=== PATIENT | female | born 1995 | race American Indian/Alaskan Native ===

== ENCOUNTER 2019-07-20 14:12 | Outpatient (CLI) | payer MEDICAID ==
[2019-07-20 14:56] VITALS: BP 121/76
[2019-07-20] MEDS ORDERED: LACTATED RINGERS 500 ML IV ONE (15:17)
[2019-07-20 16:06] LABS: Bacteria,Urine 2+ /HPF (Negative); Bilirubin,Urine NEG (Negative); Blood,Urine NEG (Negative); Color,Urine Yellow (Yellow); Protein,Urine <15 mg/dL mg/dL (Negative); Urobilinogen,Urine < 2.0 mg/dL (<2.0)
[2019-07-20] MEDS ORDERED: ROCEPHIN/NS 2 GM/100 ML 2 GM/100 ML BAG IV ONE (17:15)
== END 2019-07-20 19:15 | disposition home or self-care (01) ==
LOC: TRG 14:12
PROVIDERS: ATTEND Obstetrics & Gynecology
DX: O26.893 Other specified pregnancy related conditions, third trimester (principal); R51 Headache; M54.9 Dorsalgia, unspecified; R25.2 Cramp and spasm; O47.03 False labor before 37 completed weeks of gestation, third trimester; Z3A.34 34 weeks gestation of pregnancy
CPT/HCPCS: 59025; 81001; 87086; 96360; J0696; J7120

== ENCOUNTER 2019-08-08 21:00 | Inpatient (IN) | payer MEDICAID ==
[2019-08-08] MEDS ORDERED: LACTATED RINGERS 500 ML IV ONE (21:40)
[2019-08-08 22:25] LABS: Bilirubin,Urine NEG (Negative); Blood,Urine NEG (Negative); Color,Urine Yellow (Yellow); Mucus,Urine 1+ /HPF; Protein,Urine <15 mg/dL mg/dL (Negative); Urobilinogen,Urine < 2.0 mg/dL (<2.0)
[2019-08-08] MEDS ORDERED: BUTORPHANOL 2 MG/1 ML INJ IV PRN (23:00)
[2019-08-09 00:35] LABS: Hematocrit 37.1 % (30.3-42.9); Hemoglobin 12.7 gm/dl (10.1-14.3); Mean Platelet Volume 8.2 fl (6-12); Red Blood Count 4.42 M/mm3 (3.65-5.03); Red Cell Distribution Width 13.6 % (13.2-15.2)
[2019-08-09] MEDS ORDERED: LACTATED RINGERS 1,000 ML ONE (06:56)
--- NOTE | 2019-08-09 10:22 | History and Physical Report ---
History of Present Illness Date of examination: 08/09/19 Date of admission: 08/08/19 23:21 Chief complaint: Labor History of present illness: Pt is a 23yo BF EDC 08/30/19; EGA 37 0/7 weeks presents to L&D complaining of irregular contractions. She received care at [facility] since 10 weeks and course has been unremarkable except for Morbid Obesity. records are available and GBS is Negative. Past History Past Medical History: no pertinent history Past Surgical History: no surgical history [employer] History: herpes Family/Genetic History: none Social history: no significant social history, single - Obstetrical History Expected Date of Delivery: 08/30/19 Actual Gestation: 37 Week(s) 0 Day(s) : 2 Medications and Allergies Allergies Allergy/AdvReac Type Severity Reaction Status Date / Time No Known Allergies Allergy Verified 05/17/15 20:33 Home Medications Medication Instructions Recorded Confirmed Last Taken Type Pnv,Calcium 72/Iron/Folic Acid 1 tab PO DAILY 03/27/15 05/23/15 05/10/15 History [Pnv Plus Multivit Tab] valACYclovir [Valtrex] 1 tab PO DAILY 05/24/15 05/24/15 05/22/15 09:00 History 1 tab cephALEXin [Keflex] 500 mg PO Q12HR #10 cap 05/26/15 Unknown Rx Active Meds: Active Medications Butorphanol Tartrate (Stadol) 2 mg IV Q2H PRN PRN Reason: Pain , Severe (7-10) Last Admin: 08/09/19 01:21 Dose: 2 mg Documented by: Review of Systems All systems: negative - Vital Signs Vital signs: Vital Signs Pulse BP 105 H 122/83 08/08/19 21:15 08/08/19 21:15 Temp Pulse Resp BP Pulse Ox 98.3 F 92 H 16 113/62 94 08/08/19 23:29 08/09/19 09:21 08/08/19 23:29 08/09/19 09:21 08/09/19 08:27 - Physical Exam Breasts: Positive: deferred Lungs: Positive: Clear to auscultation Abdomen: Positive: normal appearance Genitourinary (Female): Positive: normal external genitalia Vagina: Positive: normal moisture Uterus: Positive: enlarged Extremities: Positive: normal - Obstetrical FHR: category 1 Uterine Contraction Monitor Mode: External Cervical Dilatation: 4.5 Cervical Effacement Percentage: 70 station: -3 Uterine Contraction Pattern: Irregular Uterine Tone Measurement Phase: Contraction Uterine Contraction Intensity: Mild Results Result Diagrams: 08/09/19 Unknown All other labs normal. Assessment and Plan - Patient Problems (1) 37 weeks gestation of Onset Date: 08/09/19 Current Visit: Yes Status: Acute Plan to address problem: A: IUP @ 37 0/7 weeks in early labor Morbid obesity P: Admit to L&D for pitocin augmentation of labor (2) Morbid obesity with BMI of 45.0-49.9, adult Onset Date: 08/09/19 Current Visit: Yes Status: Chronic
[2019-08-09] MEDS ORDERED: ePHEDrine SULFATE 50 MG/1 ML INJ IV PRN (10:25)
[2019-08-09] MEDS ORDERED: TERBUTALINE 1 MG/1 ML INJ SUB-Q PRN (10:25)
[2019-08-09] MEDS ORDERED: LIDOCAINE (2%) 20 MG/1 ML VIAL 20 ML MDV INFILTRATI ONE (10:25)
[2019-08-09] MEDS ORDERED: fentaNYL 100 MCG/2 ML INJ IV PRN (10:25)
[2019-08-09] MEDS ORDERED: MINERAL OIL 30 ML ORAL LIQD PO PRN (10:25)
[2019-08-09] MEDS ORDERED: ONDANSETRON 4 MG/2 ML INJ IV PRN ×2 (10:25→19:16)
[2019-08-09] MEDS ORDERED: TERBUTALINE 1 MG/1 ML INJ IVP PRN (10:25)
[2019-08-09] MEDS ORDERED: OXYTOCIN 20 UNIT/1000ML DRIP 20 UNITS/1,000 ML BAG IV SCH ×2 (11:00→20:00)
[2019-08-09] MEDS ORDERED: OXYTOCIN DRIP 30 UNITS/500 ML BAG IV SCH ×2 (11:00)
[2019-08-09] MEDS ORDERED: LACTATED RINGERS 1,000 ML IV SCH (11:00)
--- NOTE | 2019-08-09 19:12 | Procedure Note ---
OB Delivery Note - Delivery Date of Delivery: 08/09/19 Surgeon: HINA MEZA Estimated blood loss: 100cc - Vaginal Delivery presentation: vertex Delivery position: OA Intrapartum events: PROM->1hr before delivery Delivery induction: none Delivery augmentation: rupture of membranes, pitocin Delivery monitor: external FHT, external uterine Route of delivery: Delivery placenta: spontaneous Delivery cord: 3 umbilical vessels Episiotomy: none Delivery laceration: none Anesthesia: intravenous Delivery comments: Infant delivered OA and placed on Mom's chest for [id number] bonding and delayed cord clamping, cut by Dad - Infant A at 1 minute: 8 at 5 minutes: 9 Gender: Male (2635gms)
[2019-08-09] MEDS ORDERED: ACETAMINOPHEN 325 MG TAB PO PRN (19:16)
[2019-08-09] MEDS ORDERED: HYDROcodone/ACETAMINOPHEN 5-325 MG TAB PO PRN (19:16)
[2019-08-09] MEDS ORDERED: LANOLIN/ZINC/DIMETHICONE (LANSINOH) 7 GM TP PRN (19:16)
[2019-08-09] MEDS ORDERED: MAGNESIUM HYDROXIDE (MOM) ORAL LIQD UDC PO PRN (19:16)
[2019-08-09] MEDS ORDERED: BISACODYL 10 MG RECT SUPP PR PRN (19:16)
[2019-08-09] MEDS ORDERED: WITCH HAZEL/ GLYCERIN PAD TP PRN (19:16)
[2019-08-09] MEDS ORDERED: diphenhydrAMINE 25 MG CAP PO PRN (19:16)
[2019-08-09] MEDS ORDERED: PROMETHAZINE 25 MG RECT SUPP PR PRN (19:16)
[2019-08-09] MEDS ORDERED: PROMETHAZINE 25 MG TAB PO PRN (19:16)
[2019-08-09] MEDS: FERROUS SULFATE 325 MG TAB PO SCH (22:57)
[2019-08-09] MEDS: DOCUSATE SODIUM 100 MG CAP PO SCH (22:58)
[2019-08-09] MEDS: IBUPROFEN 600 MG TAB PO SCH (23:58)
[2019-08-10] MEDS: IBUPROFEN 600 MG TAB PO SCH ×4 (05:51→23:54)
[2019-08-10] MEDS ORDERED: MEASLES, MUMPS & RUBELLA 12,500 UNIT/0.5 ML VACCINE SUB-Q ONE (06:00)
[2019-08-10] MEDS ORDERED: TETANUS,DIPH,PERTUSS(ACELL) VACCINE 0.5 ML SYRINGE IM ONE (06:00)
[2019-08-10 08:06] LABS: Hematocrit 34.4 % (30.3-42.9); Hemoglobin 11.7 gm/dl (10.1-14.3)
--- NOTE | 2019-08-10 10:02 | Progress Note ---
Assessment and Plan - Patient Problems (1) 37 weeks gestation of Onset Date: 08/09/19 Current Visit: Yes Status: Resolved (2) Morbid obesity with BMI of 45.0-49.9, adult Onset Date: 08/09/19 Current Visit: Yes Status: Resolved (3) (normal spontaneous vaginal delivery) Onset Date: 08/10/19 Current Visit: Yes Status: Resolved Plan to address problem: A: S/P - PPD #1 Doing well Asymptomatic anemia - stable P: May go home tomorrow. Subjective - Subjective Date of service: 08/10/19 Principal diagnosis: s/p - PPD #1 Interval history: Pt is feeling well without complaints. Bleeding improved. Patient reports: appetite normal, voiding normally, pain well controlled, flatus, ambulating normally, no dizzy ambulation, no nauseated : doing well, nursing well, bottle feeding Objective - Vital Signs Latest vital signs: Vital Signs Temp Pulse Resp BP BP Pulse Ox 08/10/19 06:02 98.2 F 94 H 18 118/79 98 08/10/19 05:51 18 08/10/19 00:21 98.4 F 87 16 121/76 97 08/09/19 23:58 20 08/09/19 20:50 98.1 F 87 20 109/68 100 08/09/19 19:54 87 134/92 08/09/19 19:39 100 H 154/100 08/09/19 19:24 94 H 126/93 08/09/19 19:09 94 H 132/82 08/09/19 17:00 98.3 F 08/09/19 16:42 103 H 96 08/09/19 16:41 111 H 94 08/09/19 16:37 72 92 08/09/19 16:33 111 H 94 08/09/19 16:32 112 H 94 08/09/19 16:27 111 H 95 08/09/19 16:24 102 H 94 08/09/19 16:22 100 H 97 08/09/19 16:14 107 H 96 08/09/19 16:09 100 H 97 08/09/19 16:04 97 H 97 08/09/19 15:59 88 96 08/09/19 15:54 94 H 96 08/09/19 15:49 108 H 96 08/09/19 15:44 107 H 97 08/09/19 15:39 106 H 96 08/09/19 15:34 97 H 96 08/09/19 15:29 98 H 96 08/09/19 15:24 98 H 98 08/09/19 15:19 92 H 97 08/09/19 15:14 93 H 97 08/09/19 15:09 87 97 08/09/19 15:00 99 H 99 08/09/19 14:55 97 H 95 08/09/19 14:50 100 H 97 08/09/19 14:45 97 H 97 08/09/19 14:40 97 H 98 08/09/19 14:35 97 H 98 08/09/19 14:30 97 H 98 08/09/19 14:25 107 H 97 08/09/19 14:20 98 H 96 08/09/19 14:09 99 H 96 08/09/19 14:04 89 98 08/09/19 14:00 98.2 F 08/09/19 13:59 98 H 98 08/09/19 13:57 92 H 94 08/09/19 13:54 95 H 97 08/09/19 13:49 89 97 08/09/19 13:44 89 97 08/09/19 13:39 91 H 97 08/09/19 13:34 88 97 08/09/19 13:29 93 H 97 08/09/19 13:24 89 97 08/09/19 13:19 92 H 96 08/09/19 13:14 94 H 96 08/09/19 13:09 91 H 98 08/09/19 13:04 94 H 96 08/09/19 12:59 109 H 97 08/09/19 12:54 94 H 96 08/09/19 12:49 100 H 97 08/09/19 12:44 99 H 96 08/09/19 12:39 103 H 97 08/09/19 12:34 100 H 97 08/09/19 12:29 98 H 97 08/09/19 12:24 104 H 97 08/09/19 12:19 112 H 96 08/09/19 12:14 113 H 97 08/09/19 12:09 118 H 97 08/09/19 12:04 104 H 97 08/09/19 11:59 102 H 98 08/09/19 11:54 101 H 95 08/09/19 11:49 106 H 95 08/09/19 11:44 112 H 97 08/09/19 11:39 121 H 97 08/09/19 11:34 104 H 94 08/09/19 11:29 106 H 96 08/09/19 11:24 113 H 124/79 96 08/09/19 11:00 98.4 F Intake and Output 08/09/19 08/10/19 08/10/19 22:59 06:59 14:59 Intake Total 6.65 600 Output Total 800 Balance 6.65 -200 Intake: IV 6.65 PITOCin/NS 30 UNIT/500ML 6.65 30 units In 500 ml @ 1 MILLIUNITS/MIN 1 mls/hr IV TITR ANALIA Rx#:[id number] Intake, Free Water 600 Output: Urine 800 Void 800 Other: Total, Output Amount 300 Estimated Blood Loss 100 - Exam Breasts: Present: deferred Abdomen: Present: normal appearance, soft Uterus: Present: normal, firm, fundal height below umbilicus Extremities: Present: normal - Labs Labs: Laboratory Tests 08/08/19 08/08/19 08/09/19 21:54 23:45 00:30 WBC RBC Hgb Hct MCV MCH MCHC RDW Plt Count Urine Color Yellow Urine Turbidity Clear Urine pH 6.0 Ur Specific [place] 1.015 Urine Protein <15 mg/dl Urine Glucose (UA) Neg Urine Ketones Neg Urine Blood Neg Urine Nitrite Neg Urine Bilirubin Neg Urine Urobilinogen < 2.0 Ur Leukocyte Esterase Tr Urine WBC (Auto) 2.0 Urine RBC (Auto) 2.0 U Epithel Cells (Auto) 7.0 Urine Mucus 1+ Blood Type TNR B POSITIVE Antibody Screen TNR Negative 08/09/19 08/10/19 Unknown 07:46 WBC 9.2 RBC 4.42 Hgb 12.7 11.7 Hct 37.1 34.4 MCV 84 MCH 29 MCHC 34 RDW 13.6 Plt Count 157 Urine Color Urine Turbidity Urine pH Ur Specific [place] Urine Protein Urine Glucose (UA) Urine Ketones Urine Blood Urine Nitrite Urine Bilirubin Urine Urobilinogen Ur Leukocyte Esterase Urine WBC (Auto) Urine RBC (Auto) U Epithel Cells (Auto) Urine Mucus Blood Type Antibody Screen
[2019-08-10] MEDS: FERROUS SULFATE 325 MG TAB PO SCH ×2 (11:17→22:05)
[2019-08-10] MEDS: DOCUSATE SODIUM 100 MG CAP PO SCH ×2 (11:18→22:05)
[2019-08-10] MEDS: PRENATAL VIT27-FE FUMARATE-FOLIC ACID VIT TAB PO SCH (11:18)
--- NOTE | 2019-08-10 17:01 | Discharge Summary ---
Providers - Providers Date of Admission: 08/08/19 23:21 Date of discharge: 08/11/19 Attending physician: HINA MEZA Primary care physician: HINA MEZA Hospitalization Reason for admission: active labor, IUP at term Delivery: Episiotomy: none Laceration: none Other procedures: none complications: none Discharge diagnosis: IUP at term delivered [place] baby: male Hospital course: Unremarkable. Condition at discharge: Good Disposition: DC-01 TO HOME OR SELFCARE - Discharge Diagnoses (1) 37 weeks gestation of Status: Resolved (2) Morbid obesity with BMI of 45.0-49.9, adult Status: Resolved (3) (normal spontaneous vaginal delivery) Status: Resolved Plan - Discharge Medications Prescriptions: Ferrous Sulfate [Feosol 325 MG tab] 325 mg PO BID #60 tablet Ibuprofen [Motrin 600 MG tab] 600 mg PO Q6H #30 tablet Vit-Fe Fumar-FA [ Vitamin] 1 each PO QDAY #30 tablet - Provider Discharge Summary Activity: routine, no sex for 6 weeks, no heavy lifting 4 weeks, no strenuous exercise Diet: routine Instructions: routine Additional instructions: [] Smoking cessation referral if applicable(refer to patient education folder for contact #) [] Refer to [facility]'s [facility] Booklet Call your doctor immediately for: * Fever > 100.5 * Heavy vaginal bleeding ( >1 pad per hour) * Severe persistent headache * Shortness of breath * Reddened, hot, painful area to leg or breast * Drainage or odor from incision. * Keep incision clean and dry at all times and follow doctor's instructions regarding bathing/showering - Follow up plan Follow up: HINA MEZA MD [Primary Care Provider] - 14 Days MORGAN FRANK CNM [Advanced Practice Nurse] - 14 Days
[2019-08-11] MEDS: IBUPROFEN 600 MG TAB PO SCH ×2 (05:20→09:55)
[2019-08-11] MEDS: FERROUS SULFATE 325 MG TAB PO SCH (09:55)
[2019-08-11] MEDS: PRENATAL VIT27-FE FUMARATE-FOLIC ACID VIT TAB PO SCH (09:55)
[2019-08-11] MEDS: DOCUSATE SODIUM 100 MG CAP PO SCH (09:56)
[2019-08-11 16:44] VITALS: BP 115/75
== END 2019-08-11 13:00 | disposition home or self-care (01) | DRG 775 ==
LOC: TRG 21:00 → LD 23:21 → OBSVTOIN 23:21 → INTOOBSV 23:22 → OBSVTOIN 23:22 → OB 08-09 21:05
PROVIDERS: ADMIT Obstetrics & Gynecology; ATTEND Obstetrics & Gynecology
PROC: 10E0XZZ Delivery of Products of Conception, External Approach (ICD-10-PCS; principal; 2019-08-09)
PROC: 3E0234Z Introduction of Serum, Toxoid and Vaccine into Muscle, Percutaneous Approach (ICD-10-PCS; 2019-08-10)
DX: O99.214 Obesity complicating childbirth (principal); E66.01 Morbid (severe) obesity due to excess calories; O42.92 Full-term premature rupture of membranes, unspecified as to length of time between rupture and onset of labor; O90.81 Anemia of the puerperium; Z3A.37 37 weeks gestation of pregnancy; Z37.0 Single live birth; Z23 Encounter for immunization
CPT/HCPCS: 36415; 81001; 85014; 85018; 85027; 86850; 86900; 86901; G0378; J0595; J2590; J7120

== ENCOUNTER 2019-11-09 05:43 | Day surgery (SDC) | payer MEDICAID ==
--- NOTE | 2019-11-09 06:23 | Anesthesia Day of Surgery ---
Anesthesia Day of Surgery - Day of Surgery Patient Examined: Yes Patient H&P Reviewed: Yes Patient is NPO: Yes
--- NOTE | 2019-11-09 06:23 | Anesthesia Consultation ---
Anesthesia Consult and Med Hx Date of service: 11/09/19 - Airway Anesthetic Teeth Evaluation: Good ROM Head & Neck: Adequate Mental/Hyoid Distance: Adequate Mallampati Class: Class II Intubation Access Assessment: Probably Good - Pulmonary Exam CTA: Yes - Cardiac Exam Cardiac Exam: RRR - Pre-Operative Health Status ASA Pre-Surgery Classification: ASA3 Proposed Anesthetic Plan: General - Pulmonary Hx Asthma: Yes (prn albuterol, no steroids) - Other Systems Hx Alcohol Use: Yes Hx Obesity: Yes
[2019-11-09] MEDS ORDERED: ONDANSETRON 4 MG/2 ML INJ IV PRN (06:24)
[2019-11-09] MEDS ORDERED: HYDROcodone/ACETAMINOPHEN 5-325 MG TAB PO PRN (06:24)
[2019-11-09] MEDS ORDERED: HYDROmorphone 1 MG/1 ML INJ IV PRN (06:24)
[2019-11-09] MEDS ORDERED: BUPIVACAINE/PF (0.5%) 5 MG/1 ML 30 ML VIAL INFILTRATI ONE (06:34)
[2019-11-09] MEDS ORDERED: BACTERIOSTATIC SODIUM CHLORIDE 0.9% 30 ML VIAL INFILTRATI ONE (06:47)
[2019-11-09] MEDS ORDERED: MIDAZOLAM 2 MG/2 ML INJ IV NR (07:00)
[2019-11-09] MEDS ORDERED: LACTATED RINGERS 1,000 ML IV SCH (07:00)
[2019-11-09] MEDS ORDERED: FAMOTIDINE 20 MG TAB PO NR (07:00)
[2019-11-09] MEDS ORDERED: PROPOFOL 200 MG/20 ML VIAL IV ONE (07:26)
[2019-11-09] MEDS ORDERED: fentaNYL 100 MCG/2 ML INJ ONE (07:26)
--- NOTE | 2019-11-09 07:26 | Short Stay Summary ---
Short Stay Documentation Date of service: 11/09/19 Narrative H&P: Pt is a 24yo BF LMP 10/30/19 s/p 08/09/19 presents for permanent sterilization - History Principal diagnosis: Desires permanent sterilization H&P: obtained from office Past Medical History: No medical history Past Surgical History: No surgical history Social history: no significant social history, single - Allergies and Medications Current Medications: Allergies No Known Allergies Allergy (Verified 11/05/19 12:08) Home Medications Medication Instructions Recorded Confirmed Last Taken Type No Known Home Medications [No 11/05/19 11/05/19 Unknown History Reported Home Medications] Active Medications Acetaminophen/Hydrocodone Bitart (Ducor 5/325) 2 each PO ONCE PRN PRN Reason: Pain, Moderate (4-6) Famotidine (Pepcid) 20 mg PO PREOP NR Stop: 11/09/19 23:45 Hydromorphone HCl (Dilaudid) 0.5 mg IV Q10MIN PRN PRN Reason: Pain , Severe (7-10) Stop: 11/09/19 14:56 Lactated Ringer's (Lactated Ringers) 1,000 mls @ 100 mls/hr IV DIRECT ANALIA Midazolam HCl (Versed) 2 mg IV PREOP NR Stop: 11/09/19 23:59 Ondansetron HCl (Zofran) 4 mg IV ONCE PRN PRN Reason: Nausea And Vomiting - Physical exam General appearance: no acute distress Integumentary: no rash HEENT: Atraumatic Lungs: Clear to auscultation Breasts: deferred Heart: Regular rate Gastrointestinal: normal Female Genitourinary: deferred Rectal Exam: deferred Extremities: no ischemia, No edema Neurological: Normal gait, Normal speech - Brief post op/procedure progress note Date of procedure: 11/09/19 Pre-op diagnosis: Desires permanent sterilization Post-op diagnosis: same Procedure: Laparoscopic Tubal Ligation Anesthesia: GETA Findings: A normal uterus with normal tubes and ovaries bilaterally. Surgeon: HINA MEZA Estimated blood loss: minimal Pathology: none Condition: stable - Hospital course Hospital course: Unremarkable. - Disposition Condition at discharge: Good Disposition: DC-01 TO HOME OR SELFCARE - Discharge Diagnoses (1) Encounter for sterilization Status: Resolved Short Stay Discharge Plan Activity: no restrictions Diet: regular Wound: open to air, keep clean and dry Follow up with: PRIMARY CARE, [Primary Care Provider] - 7 Days HINA MEZA MD [Staff Physician] - 14 Days Prescriptions: HYDROcodone/APAP 5-325 [Ducor 5/325] 1 each PO Q6HR PRN #20 tablet PRN Reason: Pain
[2019-11-09] MEDS ORDERED: LIDOCAINE MPF (2%) 20 MG/1 ML VIAL 5 ML ONE (07:27)
[2019-11-09] MEDS ORDERED: ROCURONIUM 50 MG/5 ML INJ IV ONE (07:27)
[2019-11-09] MEDS ORDERED: BUPIVACAINE/PF (0.5%) 5 MG/1 ML 10 ML VIAL INFILTRATI ONE ×2 (07:28→08:05)
[2019-11-09 07:40] LABS: Hematocrit 39.4 % (30.3-42.9); Hemoglobin 13.2 gm/dl (10.1-14.3)
[2019-11-09] MEDS ORDERED: ONDANSETRON 4 MG/2 ML INJ ONE (07:55)
[2019-11-09] MEDS ORDERED: dexAMETHasone 20 MG/5 ML VIAL ONE (07:55)
[2019-11-09] MEDS ORDERED: ceFAZolin/Water 2 GM/20 ML 2 GM/20 ML SYRINGE IV NR (08:00)
[2019-11-09] MEDS ORDERED: GLYCOPYRROLATE 0.4 MG/2 ML INJ ONE (08:14)
[2019-11-09] MEDS ORDERED: NEOSTIGMINE 10MG/10 ML INJ MDV ONE (08:14)
--- NOTE | 2019-11-09 08:30 | Operative Report ---
Operative Report Operative Report: PREOPERATIVE DIAGNOSIS: Desires permanent sterilization POSTOPERATIVE DIAGNOSIS: Same OPERATIVE PROCEDURE: Laparoscopic bilateral tubal ligation. SURGEON: Addison Contreras MD ANESTHESIA: Gen. endotracheal intubation ANESTHESIOLOGIST: Dr. Murillo ESTIMATED BLOOD LOSS: Minimal FINDINGS: A normal uterus with normal fallopian tubes and ovaries bilaterally. COMPLICATIONS: None COUNTS: Correct x3. PROCEDURE: After the patient was correctly identified and after general anesthesia was administered, the patient was prepped and draped in usual sterile fashion and placed in dorsal lithotomy position. First, the bladder was emptied using a straight catheter. Next, a speculum was placed in the vaginal vault and the anterior lip of the cervix was grasped using a single-tooth tenaculum. The uterine manipulator was then placed and the tenaculum and speculum were removed. Attention was then turned to the abdomen where first a periumbilical incision was made using a skin knife, and the Optiview trocar was inserted under direct visualization. After an adequate amount of abdominal insufflation, vi sualization of the pelvic organs found the uterus to be normal with normal fallopian tubes and ovaries bilaterally. Next, the left fallopian tube was grasped using the Kleppingers, and after identifying the fimbriated end of the left tube, this tube was cauterized in 3 continuous [address] along the proximal portion of the left tube. The same procedure was performed on the right fallopian tube after first identifying the fimbriated end of the right tube, this tube was also cauterized in 3 continuous places along the proximal portion of the right tube. At this point, the procedure was then considered complete. All instruments were removed from the abdomen. The abdomen was deflated and the periumbilical incision was closed using 0 Vicryl suture in a [id number] configuration on the fascia, followed by 4-0 Monocryl suture in sub-cuticular fashion on the skin. The incision was also infiltrated using 0.5% Marcaine solution. The uterine manipulator was removed. The patient tolerated the procedure well and was transferred to recovery room stable condition.
[2019-11-09 09:22] VITALS: BP 112/75
--- NOTE | 2019-11-09 10:06 | Post Anesthesia Evaluation ---
- Post Anesthesia Evaluation Patient Participated: Yes Airway Patent: Yes Stable Respiratory Function: Yes
== END 2019-11-09 05:44 | disposition home or self-care (01) ==
LOC: OR 05:43
PROVIDERS: ATTEND Obstetrics & Gynecology
DX: Z30.2 Encounter for sterilization (principal); E66.01 Morbid (severe) obesity due to excess calories; J45.909 Unspecified asthma, uncomplicated; Z79.899 Other long term (current) drug therapy; Z68.39 Body mass index [BMI] 39.0-39.9, adult; Z72.89 Other problems related to lifestyle; Z83.3 Family history of diabetes mellitus; Z80.8 Family history of malignant neoplasm of other organs or systems
CPT/HCPCS: 36415; 58670; 81025; 85014; 85018; J0690; J1100; J2250; J2405; J2704; J2710; J3010; J7120